=== PATIENT | female | born 1995 | race Two or more races ===

== ENCOUNTER 2023-03-09 07:28 | Inpatient (IN) | payer OTHER ==
[~2023-03-09] VITALS: Ht 157.5 cm; Wt 53.5 kg
[2023-03-09 10:06] LABS: HEMATOCRIT 40.3 % (36.0-45.00); HEMOGLOBIN 13.5 g/dL (12.0-15.00); MEAN CELL VOLUME 80.5 fL (80.00-100.00); MEAN CORPUSCULAR HGB CONC 33.6 g/dl (32.0-36.0); RED BLOOD COUNT 5.01 M/uL (4.00-6.00); RED CELL DISTRIBUTION WIDTH 14.8 % (11.5-14.5)
[2023-03-09 10:13] LABS: PLATELET COUNT 49 K/uL (150-450)
[2023-03-09 11:44] LABS: FIBRINOGEN 301 mg/dL (187.0-446.0); INR < 0.93; PARTIAL THROMBOPLASTIN TIME 34.2 SECONDS (22.0-34.0); PROTHROMBIN TIME 9.8 SECONDS (9.0-11.5)
[2023-03-09 11:53] LABS: ALBUMIN 3.4 gm/dL (3.4-5.0); BILIRUBIN TOTAL 0.81 mg/dL (0.3-1.2); CALCIUM 8.7 mg/dL (8.5-10.1); CREATININE SERUM 0.68 mg/dL (0.55-1.02); GFR 103.79; GLOBULINA 2.9 G/DL (2.4-3.5); POTASSIUM 3.85 mEq/L (3.5-5.1); TOTAL PROTEIN 6.3 gm/dL (6.4-8.2)
[2023-03-09 19:45] LABS: ERYTHROCYTE SEDIMENTATION RATE 6 mm/hr
[2023-03-09 19:50] LABS: PLT IN CITRATE 33 K/uL (150-450)
[2023-03-09 23:14] LABS: PH,URINE 5.5 (5.0-8.0); URINE APPEARANCE Clear; URINE BILIRRUBIN Negative (NEGATIVE); URINE BLOOD Moderate; URINE COLOR Yellow; URINE LEUKOCYTE Negative; URINE NITRATE Negative; URINE PROTEIN Trace (NEGATIVE)
[2023-03-09 23:18] LABS: URINE BACTERIA 981.4 uL (0.0-1933); URINE EPITHELIAL CELLS 25.4 uL (0.0-38.8); URINE WBC 7.8 uL (0.0-23.2)
[2023-03-09 23:41] LABS: URINE GLUCOSE >=1000 MG/DL (NEGATIVE)
[2023-03-10 13:31] LABS: HEMATOCRIT 38.9 % (36.0-45.00); HEMOGLOBIN 13.3 g/dL (12.0-15.00); MEAN CELL VOLUME 78.7 fL (80.00-100.00); MEAN CORPUSCULAR HEMOGLOBIN 26.9 pg (27.00-32.0); MEAN CORPUSCULAR HGB CONC 34.1 g/dl (32.0-36.0); RED BLOOD COUNT 4.93 M/uL (4.00-6.00); RED CELL DISTRIBUTION WIDTH 14.9 % (11.5-14.5)
[2023-03-10 13:51] LABS: PLATELET COUNT 41 K/uL (150-450)
[2023-03-11 06:14] LABS: HEMATOCRIT 32.2 % (36.0-45.00); HEMOGLOBIN 11.2 g/dL (12.0-15.00); MEAN CELL VOLUME 79.9 fL (80.00-100.00); MEAN CORPUSCULAR HEMOGLOBIN 27.7 pg (27.00-32.0); MEAN CORPUSCULAR HGB CONC 34.7 g/dl (32.0-36.0); RED BLOOD COUNT 4.03 M/uL (4.00-6.00); RED CELL DISTRIBUTION WIDTH 14.4 % (11.5-14.5)
[2023-03-11 08:19] LABS: PLATELET COUNT 47 K/uL (150-450)
[2023-03-12 05:58] LABS: HEMATOCRIT 36.3 % (36.0-45.00); HEMOGLOBIN 12.3 g/dL (12.0-15.00); MEAN CELL VOLUME 79.9 fL (80.00-100.00); MEAN CORPUSCULAR HGB CONC 33.8 g/dl (32.0-36.0); RED BLOOD COUNT 4.55 M/uL (4.00-6.00); RED CELL DISTRIBUTION WIDTH 14.4 % (11.5-14.5)
[2023-03-12 06:08] LABS: PLATELET COUNT 104 K/uL (150-450)
== END 2023-03-12 23:13 | disposition home or self-care (01) | DRG 813 ==
LOC: ER 07:29 → MEDJ 18:31 → MEDI 18:31 → MEDJ 19:16 → MEDI 03-10 10:22
PROVIDERS: General Practice; Internal Medicine Hematology & Oncology; ADMIT Specialist; ATTEND Specialist
PROC: BW40ZZZ Ultrasonography of Abdomen (ICD-10-PCS; principal; 2023-03-09)
DX: D69.6 Thrombocytopenia, unspecified (principal); A90 Dengue fever [classical dengue]; K06.8 Other specified disorders of gingiva and edentulous alveolar ridge